=== PATIENT | male | born 1985 | race Caucasian/White ===

== ENCOUNTER 2019-12-01 15:29 | Emergency (ER) | payer OTHER ==
[~2019-12-01] VITALS: Ht 175.3 cm; Wt 104.3 kg
[2019-12-01 16:10] VITALS: BP 127/87
== END 2019-12-01 16:14 | disposition left against medical advice (07) ==
LOC: M.ERS 15:29
DX: Z53.21 Procedure and treatment not carried out due to patient leaving prior to being seen by health care provider (principal)